=== PATIENT | female | born 1950 | race African-American/Black ===

== ENCOUNTER 2018-02-25 08:16 | Outpatient (CLI) | payer MEDICARE, BC ==
--- NOTE | 2018-02-25 15:51 | NM ---
NUCLEAR MEDICINE BRAIN IMAGING 02/25/18 CLINICAL HISTORY: Parkinson's disease. TECHNIQUE: DaTscan with axial tomographic images of the brain was obtained subsequent to IV administration of 4. 8 millicuries Iodine 123 Ioflupane. FINDINGS: There is normal, symmetric uptake of the striata bilaterally with appropriate crescentic shape region s of activity present. IMPRESSION: Normal exam. POS: DIEGO
== END 2018-02-25 08:17 | disposition home or self-care (01) ==
LOC: NM 08:16
PROVIDERS: ATTEND Nurse Practitioner Family
DX: G20 Parkinson's disease (principal); G25.0 Essential tremor
CPT/HCPCS: 78607; A9584

== ENCOUNTER 2020-01-04 08:11 | Outpatient (CLI) | payer MEDICARE, BC ==
--- NOTE | 2020-01-04 11:26 | MRI ---
MRI LEFT KNEE WITHOUT CONTRAST: Date; 01/04/2020 INDICATION: History of fall 2 months ago with left knee pain since this injury. COMPARISON: Left knee radiograph dated 02/22/2012. No recent comparisons are available. FINDINGS: No large joint effusion is evident. There is nonspecific edema within the posterior thigh, knee, and proximal foreleg soft tissues. No popliteal cyst is identified. There is a focal cortically based fracture involving the anterior aspect of the medial femoral condyl e measuring 8.0 mm on image 16 of series 4 with underlying marrow edema. The MCL is intact. The ACL, PCL, and LCLC are intact. There is mild diffuse chondral thinning involving the femorotibial compartments with a focal full thi ckness defect involving the lateral tibial plateau measuring approximately 5.0 mm. There are small ma rginal osteophytes affecting all major compartments of the left knee. The medial and lateral menisci appear intact. There are some mild intrinsic degenerative changes seen within the lateral meniscus. There is some mild central free edge fraying of the lateral meniscal zahira dy. Popliteus and IT bands appear intact. IMPRESSION: 1. Small cortically based impaction-type fracture involving the anterior medial aspect of the medial femoral condyle suspicious for a direct blunt injury. 2. Mild osteoarthrosis of the left knee. 3. No discrete meniscal tear demonstrated. There is some mild degenerative free edge fraying of the lateral meniscal body with some intrinsic degenerative signal. 4. The ACL, PCL, MCL, LCLC, and extensor mechanism are intact. POS: BH
== END 2020-01-04 08:12 | disposition home or self-care (01) ==
LOC: SCSMRI 08:11
PROVIDERS: ATTEND Family Medicine
DX: M17.12 Unilateral primary osteoarthritis, left knee (principal); M25.562 Pain in left knee; S72.432A Displaced fracture of medial condyle of left femur, initial encounter for closed fracture

== ENCOUNTER 2022-07-22 08:25 | Outpatient (CLI) | payer MEDICARE, BC | END 2022-07-22 08:26 | disposition home or self-care (01) | LOC: TBSIIMAG 08:25 | PROVIDERS: ATTEND Neurological Surgery | DX: S32.041A Stable burst fracture of fourth lumbar vertebra, initial encounter for closed fracture (principal); M47.816 Spondylosis without myelopathy or radiculopathy, lumbar region; M81.0 Age-related osteoporosis without current pathological fracture; M41.9 Scoliosis, unspecified; M25.78 Osteophyte, vertebrae | CPT/HCPCS: 72100 ==

== ENCOUNTER 2024-05-16 09:06 | Outpatient (CLI) | payer MEDICARE | END 2024-05-16 09:07 | disposition home or self-care (01) | LOC: SCSMRI 09:06 | PROVIDERS: ATTEND Nurse Practitioner Family | DX: M48.062 Spinal stenosis, lumbar region with neurogenic claudication (principal); M48.07 Spinal stenosis, lumbosacral region | CPT/HCPCS: 72148 ==

== ENCOUNTER 2025-06-16 09:17 | Outpatient (CLI) | payer MEDICARE ==
[2025-06-16 10:02] LABS: Estimated GFR - POC 48.0
[2025-06-16] MEDS ORDERED: Iopamidol 370 76% 100 ML VIAL ONE (11:09)
== END 2025-06-16 09:18 | disposition home or self-care (01) ==
LOC: CT 09:17
PROVIDERS: ATTEND Nurse Practitioner Family
DX: R94.39 Abnormal result of other cardiovascular function study (principal); I65.29 Occlusion and stenosis of unspecified carotid artery
CPT/HCPCS: 36415; 70498; 82565

== ENCOUNTER 2025-07-31 14:27 | Outpatient (CLI) | payer MEDICARE ==
[2025-07-31 16:03] LABS: Anion Gap 13 mmol/L (10-20); BUN (Urea Nitrogen) 19 mg/dL (9.8-20.1); Calc. Creatinine Clearance 0 mL/min (70-130); Calcium 9.1 mg/dL (7.8-10.44); Carbon Dioxide 25 mmol/L (23-31); Chloride 114 mmol/L (98-107); Glucose 130 mg/dL (83-110); Potassium 4.6 mmol/L (3.5-5.1); Sodium 147 mmol/L (136-145)
[2025-07-31 16:34] LABS: #Basophils Less than 0.03 10x3/uL (0.0-0.2); #Eosinophils 0.05 10x3/uL (0.0-0.7); #Monocytes 0.39 10x3/uL (0.11-0.59); #Neutrophils 3.12 10x3/uL (1.40-6.50); %Basophils 0.4 % (0.0-1.0); %Eosinophils 0.9 % (0.0-10.0); %Lymphocytes 33.4 % (21.0-51.0); %Monocytes 7.2 % (0.0-10.0); %Neutrophils 57.9 % (42.0-75.0); Hematocrit 37.4 % (36.0-47.0); Hemoglobin 11.9 g/dL (12.0-16.0); Mean Corpuscular Hemoglobin 31.9 pg (27.0-31.0); Mean Corpuscular Volume 100.3 fL (78.0-98.0); Platelet Count 136 10x3/uL (130-400); Red Blood Cell (RBC) Count 3.73 mill/uL (4.20-5.40); White Blood Cell (WBC) Count 5.39 10x3/uL (4.8-10.8)
== END 2025-07-31 14:28 | disposition home or self-care (01) ==
LOC: LABBT 14:27
PROVIDERS: ATTEND Thoracic Surgery (Cardiothoracic Vascular Surgery)
DX: Z01.818 Encounter for other preprocedural examination (principal); I65.22 Occlusion and stenosis of left carotid artery
CPT/HCPCS: 80048; 85025; 93005; 93010

== ENCOUNTER 2025-07-31 14:30 | Inpatient (IN) | payer MEDICARE ==
[2025-08-01] MEDS ORDERED: Heparin 5,000 UNITS/ML VIAL ONE (06:42)
[2025-08-01] MEDS ORDERED: Ondansetron PF 4 MG/2 ML Vial ONE (07:07)
[2025-08-01] MEDS ORDERED: Lidocaine 1% PF 5 ML VIAL ONE (07:07)
[2025-08-01] MEDS ORDERED: fentaNYL PF 100 MCG/2 ML SYRINGE ONE (07:07)
[2025-08-01] MEDS ORDERED: Rocuronium Bromide 10 MG/ML (10ML VIAL) ONE (07:07)
[2025-08-01] MEDS ORDERED: PROPOFOL 0 ML ONE (07:08)
[2025-08-01] MEDS ORDERED: PHENYLEPHRINE-NS 100 MCG/ML 10 ML SYRINGE ONE ×2 (07:58→08:16)
[2025-08-01] MEDS ORDERED: Heparin 10,000 UNITS/ 10 ML VIAL ONE (08:06)
[2025-08-01] MEDS ORDERED: Glycopyrrolate 0.2 MG/ML 5 ML SYRINGE ONE (08:09)
[2025-08-01] MEDS ORDERED: SUGAMMADEX SODIUM 200 MG/2 ML VIAL ONE (08:37)
[2025-08-01 15:32] VITALS: BMI 24.7
[2025-08-01] MEDS ORDERED: Phenylephrine 40 MG/NS 250 ML 250 ML IVPB PRN (15:37)
[2025-08-01] MEDS ORDERED: Nitroglycerin 50 MG/250 ML BOT 250 ML IVPB PRN (15:37)
[2025-08-01] MEDS ORDERED: Acetaminophen 325 MG TAB PO PRN (15:37)
[2025-08-01] MEDS: Clindamycin/D5W 600 MG in Premix 1 BAG IVPB SCH ×2 (16:25→16:32)
[2025-08-01] MEDS: Gabapentin 100 MG CAP PO SCH ×2 (16:33→20:58)
[2025-08-01] MEDS: Carvedilol 6.25 MG TAB PO SCH (20:57)
[2025-08-01] MEDS: Insulin Glargine 30 UNITS/0.3 ML VIAL SC SCH (21:05)
[2025-08-01] MEDS: Ondansetron PF 4 MG/2 ML Vial IVP PRN (21:11)
[2025-08-02] MEDS: hydrALAZINE 20 MG/ML VIAL SLOW IVP PRN (07:11)
[2025-08-02 07:12] VITALS: BP 158/77
[2025-08-02] MEDS ORDERED: Non-Formulary Item 1 EACH (Semaglutide [Ozempic] 0.25 MG/0.368 ML Pen.Injctr) SQ SCH (09:00)
[2025-08-02 09:32] VITALS: TEMP 98
[2025-08-02] MEDS: Losartan 25 MG TAB PO SCH (09:45)
[2025-08-02] MEDS: Aspirin 81 mg Enteric Coated Tablet PO SCH (09:46)
[2025-08-02] MEDS: Calcium Carbonate 500 MG ChewTAB PO PRN (11:41)
[2025-08-02] MEDS ORDERED: Mupirocin 1 GM TUBE NASAL DECOLONIZATION NASAL SCH (21:00)
== END 2025-08-02 18:07 | disposition home or self-care (01) | DRG 36 ==
LOC: SURG A 08-01 06:13 → CCU 08-01 15:21
PROVIDERS: ADMIT Thoracic Surgery (Cardiothoracic Vascular Surgery); ATTEND Thoracic Surgery (Cardiothoracic Vascular Surgery)
PROC: 037L3DZ Dilation of Left Internal Carotid Artery with Intraluminal Device, Percutaneous Approach (ICD-10-PCS; principal; 2025-08-01)
DX: I65.22 Occlusion and stenosis of left carotid artery (principal); Z88.0 Allergy status to penicillin; Z91.040 Latex allergy status; Z90.710 Acquired absence of both cervix and uterus; Z90.49 Acquired absence of other specified parts of digestive tract; Z90.11 Acquired absence of right breast and nipple; Z98.42 Cataract extraction status, left eye; Z98.41 Cataract extraction status, right eye; Z95.1 Presence of aortocoronary bypass graft; Z90.2 Acquired absence of lung [part of]; Z98.890 Other specified postprocedural states; Z79.899 Other long term (current) drug therapy; Z79.82 Long term (current) use of aspirin
CPT/HCPCS: 36415; 36416; 84484; 93005; 93010; C1725; C1769; C1876; C1884; J0169; J0360; J0665; J1100; J1642; J1644; J1815; J2250; J2270; J2310; J2405; J2704; J2720; J3010; J3490; J7030